=== PATIENT | female | born 1995 | race Caucasian/White ===

== ENCOUNTER 2019-03-16 22:48 | Emergency (ER) | payer OTHER ==
[2019-03-16 23:23] VITALS: PULSE 96; O2SAT 99
--- NOTE | 2019-03-17 00:20 | ERPHSYRPT ---
- History of Present Illness Time Seen by Provider: 03/17/19 00:05 Source: patient Patient Subjective Stated Complaint: "pt c/o lt lower flank pain, which is shooting down her left leg" Triage Nursing Assessment: lungs clear, heart tones reg, pt is has active bs x4 quad, FHT at 150 . Pt c/o lt lower flank pain radiating down left leg. Rates pain 9 on 0-10 scale. Pt is limping when walking due to pain. Physician History: Patient is a at 34 weeks who states she has had low back pain with radiation down her posterior left leg for the past two days. She has job duties that worsens her back pain. Patient denies any vaginal bleeding, leakage of fluids, headache, abdominal pain, abdominal cramping, vomiting, diarrhea and she feels baby moving well. Timing/Duration: yesterday Method of Injury: other (repetitive activity at work, no specific injury or mechanism) Quality: radiating, aching Back Pain Location: lumbar spine, paraspinous muscles Back Pain Radiation: lower legs (left side only) Severity of Pain-Current: severe Modifying Factors: Improves With: rest. Worsens With: movement Associated Symptoms: No fever, No chills, No sweating, No urinary incontinence, No loss of bowel control, No constipation, No nausea, No vomiting, No problems urinating, No light-headedness, No dizziness, No numbness in legs/feet, No weakness, No sensory/motor loss, No tingling in legs/feet, No lower back pain, No muscle spasms Previous symptoms: no prior history, no recent treatment Allergies/Adverse Reactions: ondansetron [From Zofran] Adverse Reaction (Intermediate, Verified 03/16/19 23: 34) Vomiting oats Adverse Reaction (Mild, Verified 03/16/19 23:34) Diarrhea Home Medications: Cephalexin [Keflex] 500 mg PO DAILY 03/16/19 [History] Docusate Sodium 100 mg PO BID 03/16/19 [History] Ferrous Sulfate [Iron] 325 mg PO BID 03/16/19 [History] Melatonin 5 mg PO HS 03/16/19 [History] Omeprazole 40 mg PO BID 03/16/19 [History] Vits W-Ca,Fe,FA(<1Mg) [] 1 tab PO DAILY 03/16/19 [History] Hx Tetanus, Diphtheria Vaccination/Date Given: Yes Hx Influenza Vaccination/Date Given: No Hx Pneumococcal Vaccination/Date Given: No Immunizations Up to Date: Yes - Review of Systems Constitutional: No Fever, No Chills Eyes: No Eye Pain, No Vision Changes Ears, Nose, & Throat: No Ear Discharge, No Nose Pain, No Nose Discharge, No Epistaxis Respiratory: No Cough, No Dyspnea Cardiac: No Chest Pain, No Edema, No Syncope Abdominal/Gastrointestinal: No Abdominal Pain, No Nausea, No Vomiting, No Diarrhea, No Hematemesis, No Hematochezia, No Melena Genitourinary Symptoms: No Dysuria, No Hematuria, No Flank Pain, No Vaginal Bleeding, No Vaginal Discharge, No Vaginal Itching Musculoskeletal: Back Pain, No Neck Pain Skin: No Rash Neurological: No Dizziness, No Focal Weakness, No Sensory Changes Psychological: No Anxiety, No Emotional Lability Endocrine: No Polyuria, No Excessive Sweating Hematologic/Lymphatic: No Easy Bleeding, No Easy Bruising All Other Systems: Reviewed and Negative - Past Medical History Pertinent Past Medical History: Yes Neurological History: Migraines ENT History: No Pertinent History Cardiac History: No Pertinent History Respiratory History: No Pertinent History Endocrine Medical History: No Pertinent History Musculoskeletal History: No Pertinent History GI Medical History: GERD History: Other Psycho-Social History: No Pertinent History Female Reproductive Disorders: No Pertinent History Other Medical History: UTI, brown recluse spider bite - Past Surgical History Past Surgical History: Yes Neuro Surgical History: No Pertinent History Cardiac: No Pertinent History Respiratory: No Pertinent History Gastrointestinal: No Pertinent History Genitourinary: No Pertinent History Musculoskeletal: No Pertinent History Female Surgical History: No Pertinent History Other Surgical History: brown recluse spider bite - Social History Smoking Status: Current every day smoker How long have you smoked: 4 yrs Exposure to second hand smoke: Yes Drug Use: none Patient Lives Alone: No - Female History Hx Now: Yes - Nursing Vital Signs Nursing Vital Signs: Initial Vital Signs Temperature 98.4 F 03/16/19 23:21 Pulse Rate 96 H 03/16/19 23:21 Respiratory Rate 17 03/16/19 23:21 Blood Pressure 143/93 03/16/19 23:21 O2 Sat by Pulse Oximetry 99 03/16/19 23:21 Pain Scale Pain Intensity 0 - Physical Exam General Appearance: no apparent distress, alert Eye Exam: PERRL/EOMI, eyes nml inspection Ears, Nose, Throat Exam: pharynx normal Neck Exam: normal inspection, non-tender, supple, full range of motion, No meningismus, No midline tenderness Respiratory Exam: normal breath sounds, lungs clear, No respiratory distress Cardiovascular Exam: regular rate/rhythm, normal heart sounds, normal peripheral pulses Gastrointestinal Exam: soft, other (gravid abdomen consistent with dates), No tenderness, No mass Back Exam: normal inspection, normal range of motion, No CVA tenderness, No vertebral tenderness, No rash, No muscle spasm Extremity Exam: normal inspection, normal range of motion, pelvis stable, No calf tenderness, No stephan's sign, No pedal edema, No swelling Peripheral Pulses: dorsalis-pedis (R): 2+, dorsalis-pedis (L): 2+ Neurologic Exam: alert, oriented x 3, cooperative, tip stretcher II-XII nml as tested, normal mood/affect, nml station & gait, sensation nml, No motor deficits Skin Exam: normal color, warm, dry, No rash SpO2 Interpretation: normal SpO2: 99 O2 Delivery: Room Air Ordered Tests: Active Orders 24 hr Category Date Time Status UA W/RFX UR CULTURE Stat Lab 03/17/19 00:40 Completed Medication Summary Discontinued Medications Generic Name Dose Route Start Last Admin Trade Name Jeffrey PRN Reason Stop Dose Admin Acetaminophen 1,000 mg 03/17/19 00:48 03/17/19 00:58 Tylenol Extra Strength 500 Mg PO 03/17/19 00:49 1,000 mg STAT STA Administration Acetaminophen Confirm 03/17/19 00:57 Tylenol Extra Strength 500 Mg Administered 03/17/19 00:58 Dose 1,000 mg .ROUTE .Tabblo-MED ONE Lab/Rad Data: Laboratory Results 03/17/19 Range/Units 00:40 Urine Color YELLOW (YELLOW) Urine Appearance SLIGHTLY CLOUDY (CLEAR) Urine pH 6.0 (5-6) Ur Specific [place] 1.015 (1.005-1.025) Urine Protein NEGATIVE (Negative) Urine Ketones NEGATIVE (NEGATIVE) Urine Blood NEGATIVE (0-5) Aman/ul Urine Nitrite NEGATIVE (NEGATIVE) Urine Bilirubin NEGATIVE (NEGATIVE) Urine Urobilinogen NEGATIVE (0-1) mg/dL Ur Leukocyte Esterase LARGE (NEGATIVE) Urine WBC (Auto) 3-5 (0-5) /HPF Urine RBC (Auto) 3-5 (0-2) /HPF U Epithel Cells (Auto) RARE (FEW) /HPF Urine Bacteria (Auto) RARE (NEGATIVE) /HPF Amorphous Crystals FEW (NEGATIVE) /HPF Urine Mucus (Auto) SLIGHT (NEGATIVE) /HPF Urine Culture Reflexed NO (NO) Urine Glucose NEGATIVE (NEGATIVE) mg/dL - Progress Progress: unchanged Progress Note: 03/17/19 00:[address] Mcmullen, QA REVIEWER about patient's presentation. Dr Mcmullen states patient can take Tylenol for pain and does not need any further evaluation in labor and delivery for her . Heart Tones werer 150 per nurses notes. Discussed with Dr.: Other (Dr Mcmullen, QA REVIEWER) Will see patient in: office Counseled pt/family regarding: lab results, diagnosis, need for follow-up - Departure Departure Disposition: Home Clinical Impression: Acute low back pain with left-sided sciatica Qualifiers: Back pain laterality: left Qualified Code(s): M54.42 - Lumbago with sciatica, left side Condition: Good Critical Care Time: No Referrals: DOCTOR,NO FAMILY [Primary Care Provider] - FAHEEM ANDREW MD [COURTESY STAFF] - 03/17/19 Instructions: Low Back Pain (DC), Sciatica (DC), Flank Pain Additional Instructions: Take Tylenol for pain control. See Dr Andrew in the morning of 03/17/2019. Return if any worse pain, new fever, new urinary symptoms, new weakness or any other concerning signs of symptoms not present at today's Emergency department visit for immediate evaluation in the emergency department. Forms: Work/School Release Form
[2019-03-17 00:34] VITALS: BP 115/68
[2019-03-17] MEDS ORDERED: TYLENOL EXTRA STRENGTH 500 MG PO STA (00:48)
[2019-03-17] MEDS ORDERED: TYLENOL EXTRA STRENGTH 500 MG ONE (00:57)
[2019-03-17 01:19] LABS: Amourphous Crystal FEW /HPF (NEGATIVE); Appearance SLIGHTLY CLOUDY (CLEAR); Bacteria RARE /HPF (NEGATIVE); Bilirubin NEGATIVE (NEGATIVE); Blood NEGATIVE Ery/ul (0-5); Epithelial Cells RARE /HPF (FEW); Glucose NEGATIVE (NEGATIVE); Ketones NEGATIVE (NEGATIVE); Leukocyte Esterase LARGE (NEGATIVE); Mucus SLIGHT /HPF (NEGATIVE); Nitrite NEGATIVE (NEGATIVE); Protein,Urine Dip NEGATIVE (Negative); Specific Gravity 1.015 (1.005-1.025); Urobilinogen NEGATIVE mg/dL (0-1)
== END 2019-03-17 01:18 | disposition home or self-care (01) ==
LOC: ED 22:48
DX: Z77.098 Contact with and (suspected) exposure to other hazardous, chiefly nonmedicinal, chemicals (principal); I10 Essential (primary) hypertension; Z79.899 Other long term (current) drug therapy; E03.9 Hypothyroidism, unspecified; G62.9 Polyneuropathy, unspecified
CPT/HCPCS: 81001; 99283; A9270-GY

== ENCOUNTER 2024-02-05 09:46 | Emergency (ER) | payer BC, OTHER ==
[2024-02-05 10:19] VITALS: TEMP 98.1
[2024-02-05] MEDS ORDERED: TORAdol 30 mg Injection ONE (10:35)
[2024-02-05] MEDS ORDERED: Sodium Chloride 0.9% 1000 ML 1,000 ML ONE (10:35)
[2024-02-05 10:37] LABS: Absolute Neutrophil Ct (ANC) 9.55 x10^3/uL (1.56-6.13); BASOPHIL % 0.2 % (0.1-1.2); Basophil (Absolute #) 0.03 x10^3/uL (0.01-0.08); Eosinophil % 2.6 % (0.7-5.8); Eosinophil (Absolute #) 0.35 x10^3/uL (0.04-0.36); Hematocrit 39.1 % (34.1-44.9); Hemoglobin 13.1 g/dL (11.2-15.7); IMMATURE GRAN # 0.13 x10^3u/L (0.001-0.031); Lymphocyte (Absolute #) 2.52 x10^3/uL (1.18-3.74); Mean Cell Volume 87.3 fL (79.4-94.8); Mean Corpuscular Hemoglobin 29.2 pg (25.6-32.2); Mean Corpuscular Hgb Concent. 33.5 g/dL (32.2-35.5); Mean Platelet Volume 9.4 fL (9.4-12.3); Monocytes % 5.3 % (4.7-12.5); Neutrophil % 71.9 % (34.0-71.1); Platelet Count 323 x10^3/uL (182-369); Red Blood Count 4.48 x10^6/uL (3.93-5.22); Red Cell Distribution Width 12.4 % (11.7-14.4); White Blood Count 13.3 x10^3/uL (3.98-10.04)
[2024-02-05] MEDS: Sodium Chloride 0.9% 1000 ML 1,000 ML IV SCH (10:43)
[2024-02-05 10:45] LABS: HCG URINE TEST NEGATIVE (NEGATIVE)
[2024-02-05] MEDS: TORAdol 30 mg Injection IV ONE (10:46)
[2024-02-05 10:52] LABS: ALBUMIN 4.2 g/dL (3.5-5.0); ANION GAP 13.5 MEQ/L (5-15); BILIRUBIN,TOTAL 0.3 mg/dL (0.2-1.3); Calcium 9.3 mg/dL (8.4-10.2); Creatinine 1 0.69 mg/dL (0.52-1.04); EST GLOMERULAR FILTRATION RATE 121.9 ML/MIN; Potassium 4.3 mmol/L (3.5-5.1); Total Protein 7.4 g/dL (6.3-8.2)
[2024-02-05 11:00] LABS: Appearance Cloudy (Clear); Bacteria Few /HPF (None Seen); Bilirubin Negative (Negative); Blood Small (Negative); Epithelial Cells Moderate /HPF (None Seen); Glucose, Urine Negative (Negative); Hyaline Casts NONE SEEN /LPF (0-2); Ketones Negative (Negative); Leukocyte Esterase Negative (Negative); Nitrite Negative (Negative); Ph 5.5 (4.6-8.0); Protein,Urine Dip Trace (Negative); Specific Gravity >=1.030 (1.005-1.030); Urobilinogen 0.2 mg/dL (0.2)
[2024-02-05 11:01] LABS: ADD URINE CULTURE? YES (NO)
[2024-02-05 11:16] VITALS: O2SAT 98
--- NOTE | 2024-02-05 11:56 | XRAY ---
Indication: Pain. Leukocytosis. Multiple contiguous axial images obtained through the abdomen and pelvis without contrast. Comparison: None Lung bases clear. Heart not enlarged. Noncontrasted stomach and bowel loops appear nonobstructed. Right ovary demonstrates 2.8 x 2.4 x 3.0 cm mass demonstrating soft tissue, fat, and calcifications favoring ovarian teratoma. 3.9 cm left ovary cyst. Tiny pelvic free fluid. Gallbladder demonstrates multiple tiny cholesterol stones. No free air. Remaining liver, pancreas, spleen, adrenal glands, kidneys, ureters, bladder, uterus, and aorta are unremarkable for noncontrast exam. Osseous structures intact with incidental bilateral L5 spondylolysis without listhesis. No ventral or inguinal hernias. Impression: 1. Right ovarian teratoma as detailed. 3.9 cm left ovary cyst with tiny free fluid. 2. Incidental tiny cholesterol gallstones and L5 spondylolysis without listhesis. 3. Remaining CT abdomen/pelvis without contrast exam is negative.
--- NOTE | 2024-02-05 13:09 | ERPHSYRPT ---
- History of Present Illness Time Seen by Provider: 02/05/24 10:20 Historian: patient Exam Limitations: no limitations Patient Subjective Stated Complaint: C/O abdominal pain with N/V. Indicates pain is to right lower abdomen at this time but started in mid upper abdomen upon waking up this am. Denies diarrhea or constipation. Triage Nursing Assessment: Patient ambulated back to ER without difficulties. She is alert and oriented. NO SOB. No cough. No active vomiting. Urine specimen obtained. PRESTON WNL. Pale. Physician History: 28-year-old female presents emergency department for evaluation of lower abdominal pain more to the right of midline than the left. Pain started today pain described as an ache that is localized. Pain is mild to moderate in intensity. No specific worsening or improving factors. Patient denies a history of the same. No associated trauma. No fever. Patient states she vomited once. Patient otherwise feels well. She voices no other complaints or concerns at this time. Portions of this note were created with voice recognition technology. There may be grammatical, spelling, punctuation or sound alike errors Timing/Duration: yesterday Activities at Onset: none Quality: aching Pain Radiation: other (Lower abdomen) Severity of Pain-Max: mild Severity of Pain-Current: moderate Modifying Factors: Improves With: nothing Associated Symptoms: denies symptoms, vomiting Previous symptoms: no prior history Allergies/Adverse Reactions: ondansetron [From Zofran] Adverse Reaction (Intermediate, Verified 02/05/24 10:05) Vomiting oats Adverse Reaction (Mild, Verified 02/05/24 10:05) Diarrhea Home Medications: Multivitamin 1 tab PO DAILY 02/05/24 [History] Norgestimate-Ethinyl Estradiol [Sprintec 28 Day Tablet] 1 tab PO DAILY 02/05/24 [History] Hx Tetanus, Diphtheria Vaccination/Date Given: Yes Hx Influenza Vaccination/Date Given: Yes Hx Pneumococcal Vaccination/Date Given: No Immunizations Up to Date: Yes Travel Risk - International Travel Have you traveled outside of the country in past 3 weeks: No - Emerging Infectious Disease Are you exhibiting symptoms associated with any current EIDs: Yes Symptoms: Abdominal Pain, Vomitting - Review of Systems Constitutional: No Symptoms, No Fever, No Chills Eyes: No Symptoms Ears, Nose, & Throat: No Symptoms Respiratory: No Symptoms, No Cough, No Dyspnea Cardiac: No Symptoms, No Chest Pain, No Edema, No Syncope Abdominal/Gastrointestinal: No Symptoms, No Abdominal Pain, No Nausea, No Vomiting, No Diarrhea Genitourinary Symptoms: No Symptoms, No Dysuria Musculoskeletal: No Symptoms, No Back Pain, No Neck Pain Skin: No Symptoms, No Rash Neurological: No Symptoms, No Dizziness, No Focal Weakness, No Sensory Changes Psychological: No Symptoms Endocrine: No Symptoms Hematologic/Lymphatic: No Symptoms Immunological/Allergic: No Symptoms All Other Systems: Reviewed and Negative - Past Medical History Pertinent Past Medical History: Yes Neurological History: Migraines ENT History: No Pertinent History Cardiac History: No Pertinent History Respiratory History: No Pertinent History Endocrine Medical History: No Pertinent History Musculoskeletal History: No Pertinent History GI Medical History: GERD History: Other Psycho-Social History: No Pertinent History Female Reproductive Disorders: No Pertinent History Other Medical History: UTI, brown recluse spider bite - Past Surgical History Past Surgical History: Yes Neuro Surgical History: No Pertinent History Cardiac: No Pertinent History Respiratory: No Pertinent History Gastrointestinal: No Pertinent History Genitourinary: No Pertinent History Musculoskeletal: No Pertinent History Female Surgical History: No Pertinent History Other Surgical History: brown recluse spider bite - Female History Hx Last Menstrual Period: last month Hx Now: No - Social History Smoking Status: Current every day smoker How long have you smoked: 9 years Exposure to second hand smoke: Yes Drug Use: none Patient Lives Alone: No - Social Determinants of Health Will the patient participate in the screening: Yes Do you worry about a steady place to live?: No Do you have any problems with any of the following?: No known problems In the past 12 months,have you had to go without utilities?: No Transportation Issues: No Has anyone in your support network made you feel unsafe?: No Have you or anyone in your house had to go without enough: No - Nursing Vital Signs Nursing Vital Signs: Initial Vital Signs Pulse Rate 87 02/05/24 10:04 Respiratory Rate 21 02/05/24 10:04 Blood Pressure 112/78 02/05/24 10:04 O2 Sat by Pulse Oximetry 100 02/05/24 10:04 Pain Scale Pain Intensity 0 - Physical Exam General Appearance: no apparent distress, alert Eye Exam: PERRL/EOMI, eyes nml inspection Ears, Nose, Throat Exam: normal ENT inspection, pharynx normal, moist mucous membranes Neck Exam: normal inspection, non-tender, supple, full range of motion Respiratory Exam: normal breath sounds, lungs clear, airway intact, No respiratory distress Cardiovascular Exam: regular rate/rhythm, normal heart sounds, normal peripheral pulses Gastrointestinal/Abdomen Exam: soft, tenderness (Mild lower abdominal tenderness no CVA tenderness no epigastric pain or tenderness), No mass Back Exam: normal inspection, normal range of motion, No CVA tenderness, No vertebral tenderness Extremity Exam: normal inspection, normal range of motion, pelvis stable Neurologic Exam: alert, oriented x 3, cooperative, normal mood/affect, nml cerebellar function, sensation nml, No motor deficits Skin Exam: normal color, warm, dry Lymphatic Exam: No adenopathy SpO2 Interpretation: normal SpO2: 98 O2 Delivery: Room Air - Course Nursing assessment & vital signs reviewed: Yes - CT Exams Abdomen/Pelvis CT Interpretation: Tele-radiologist Report (CT abdomen pelvis reveals a right ovarian mass measuring 2.8 x 2.4 x 3 cm with fat and calcification likely a teratoma. There is a 3.9 cm left ovarian cyst.) Ordered Tests: Active Orders 24 hr Category Date Time Status IV Insertion STAT Care 02/05/24 10:15 Active ABDOMEN AND PELVIS W/0 CONTRAS [CT] Stat Exams 02/05/24 10:16 Completed CBC W DIFF Stat Lab 02/05/24 10:37 Completed CMP Stat Lab 02/05/24 10:37 Completed CULTURE,URINE Stat Lab 02/05/24 10:16 Received HCG QUALITATIVE, URINE Stat Lab 02/05/24 10:39 Completed TROPONIN Q4H Lab 02/05/24 10:37 Completed TROPONIN Q4H Lab 02/05/24 14:30 Ordered TROPONIN Q4H Lab 02/05/24 18:30 Ordered UA W/RFX UR CULTURE Stat Lab 02/05/24 10:16 Completed Medication Summary Generic Name Dose Route Start Last Admin Trade Name Freq PRN Reason Stop Dose Admin Sodium Chloride 1,000 mls @ 100 mls/hr 02/05/24 10:15 02/05/24 10:43 Sodium Chloride 0.9% 1000 Ml IV 03/06/24 10:14 100 mls/hr .Q10H ROSEMARIE Administration Discontinued Medications Generic Name Dose Route Start Last Admin Trade Name Freq PRN Reason Stop Dose Admin Ketorolac Tromethamine 30 mg 02/05/24 10:15 02/05/24 10:46 Ketorolac Tromethamine 30 Mg/Ml Inj IV 02/05/24 10:16 30 mg STAT ONE Administration Ketorolac Tromethamine Confirm 02/05/24 10:35 Ketorolac Tromethamine 30 Mg/Ml Inj Administered 02/05/24 10:36 Dose 30 mg .ROUTE .STK-MED ONE Lab/Rad Data: Laboratory Result Diagrams 02/05/24 10:37 02/05/24 10:37 Laboratory Results 02/05/24 02/05/24 02/05/24 Range/Units 10:39 10:37 10:37 WBC (3.98-10.04) x10^3/uL RBC (3.93-5.22) x10^6/uL Hgb (11.2-15.7) g/dL Hct (34.1-44.9) % MCV (79.4-94.8) fL MCH (25.6-32.2) pg MCHC (32.2-35.5) g/dL RDW (11.7-14.4) % Plt Count (182-369) x10^3/uL MPV (9.4-12.3) fL Gran % (34.0-71.1) % Immature Gran % (Auto) (0.001-0.429) % Nucleat RBC Rel Count (0.00-0.2) % Eos # (Auto) (0.04-0.36) x10^3/uL Immature Gran # (Auto) (0.001-0.031) x10^3u/L Absolute Lymphs (auto) (1.18-3.74) x10^3/uL Absolute Monos (auto) (0.24-0.86) x10^3/uL Absolute Nucleated RBC (0.00-0.012) x10^3u/L Lymphocytes % (19.3-51.7) % Monocytes % (4.7-12.5) % Eosinophils % (0.7-5.8) % Basophils % (0.1-1.2) % Absolute Granulocytes (1.56-6.13) x10^3/uL Basophils # (0.01-0.08) x10^3/uL Sodium 138 (135-145) mmol/L Potassium 4.3 (3.5-5.1) mmol/L Chloride 104 (98-107) mmol/L Carbon Dioxide 25 (22-30) mmol/L Anion Gap 13.5 (5-15) MEQ/L BUN 12 (7-17) mg/dL Creatinine 0.69 (0.52-1.04) mg/dL Estimated GFR 121.9 ML/MIN Glucose 106 (74-106) mg/dL Calcium 9.3 (8.4-10.2) mg/dL Total Bilirubin 0.30 (0.2-1.3) mg/dL AST 29 (14-36) U/L ALT 38 H (0-35) U/L Alkaline Phosphatase 67 (38-126) U/L Troponin I < 0.012 (0.000-0.033) ng/mL Serum Total Protein 7.4 (6.3-8.2) g/dL Albumin 4.2 (3.5-5.0) g/dL Urine Color (Yellow) Urine Appearance (Clear) Urine pH (4.6-8.0) Ur Specific [place] (1.005-1.030) Urine Protein (Negative) Urine Glucose (UA) (Negative) mg/dL Urine Ketones (Negative) Urine Blood (Negative) Urine Nitrite (Negative) Urine Bilirubin (Negative) Urine Urobilinogen (0.2) mg/dL Ur Leukocyte Esterase (Negative) U Hyaline Cast (Auto) (0-2) /LPF Urine Microscopic RBC (0-5) /HPF Urine Microscopic WBC (0-5) /HPF Ur Epithelial Cells (None Seen) /HPF Urine Bacteria (None Seen) /HPF Urine Culture Reflexed (NO) Urine HCG, Qual NEGATIVE (NEGATIVE) 02/05/24 02/05/24 Range/Units 10:37 10:16 WBC 13.3 H (3.98-10.04) x10^3/uL RBC 4.48 (3.93-5.22) x10^6/uL Hgb 13.1 (11.2-15.7) g/dL Hct 39.1 (34.1-44.9) % MCV 87.3 (79.4-94.8) fL MCH 29.2 (25.6-32.2) pg MCHC 33.5 (32.2-35.5) g/dL RDW 12.4 (11.7-14.4) % Plt Count 323 (182-369) x10^3/uL MPV 9.4 (9.4-12.3) fL Gran % 71.9 H (34.0-71.1) % Immature Gran % (Auto) 1.0 H (0.001-0.429) % Nucleat RBC Rel Count 0.0 (0.00-0.2) % Eos # (Auto) 0.35 (0.04-0.36) x10^3/uL Immature Gran # (Auto) 0.13 H (0.001-0.031) x10^3u/L Absolute Lymphs (auto) 2.52 (1.18-3.74) x10^3/uL Absolute Monos (auto) 0.70 (0.24-0.86) x10^3/uL Absolute Nucleated RBC 0.00 (0.00-0.012) x10^3u/L Lymphocytes % 19.0 L (19.3-51.7) % Monocytes % 5.3 (4.7-12.5) % Eosinophils % 2.6 (0.7-5.8) % Basophils % 0.2 (0.1-1.2) % Absolute Granulocytes 9.55 H (1.56-6.13) x10^3/uL Basophils # 0.03 (0.01-0.08) x10^3/uL Sodium (135-145) mmol/L Potassium (3.5-5.1) mmol/L Chloride (98-107) mmol/L Carbon Dioxide (22-30) mmol/L Anion Gap (5-15) MEQ/L BUN (7-17) mg/dL Creatinine (0.52-1.04) mg/dL Estimated GFR ML/MIN Glucose (74-106) mg/dL Calcium (8.4-10.2) mg/dL Total Bilirubin (0.2-1.3) mg/dL AST (14-36) U/L ALT (0-35) U/L Alkaline Phosphatase (38-126) U/L Troponin I (0.000-0.033) ng/mL Serum Total Protein (6.3-8.2) g/dL Albumin (3.5-5.0) g/dL Urine Color Yellow (Yellow) Urine Appearance Cloudy A (Clear) Urine pH 5.5 (4.6-8.0) Ur Specific [place] >=1.030 A (1.005-1.030) Urine Protein Trace A (Negative) Urine Glucose (UA) Negative (Negative) mg/dL Urine Ketones Negative (Negative) Urine Blood Small A (Negative) Urine Nitrite Negative (Negative) Urine Bilirubin Negative (Negative) Urine Urobilinogen 0.2 (0.2) mg/dL Ur Leukocyte Esterase Negative (Negative) U Hyaline Cast (Auto) NONE SEEN (0-2) /LPF Urine Microscopic RBC 3-5 (0-5) /HPF Urine Microscopic WBC 3-5 (0-5) /HPF Ur Epithelial Cells Moderate A (None Seen) /HPF Urine Bacteria Few A (None Seen) /HPF Urine Culture Reflexed YES (NO) Urine HCG, Qual (NEGATIVE) - Progress Progress: improved Progress Note: 28-year-old female presents to our ED for evaluation of lower abdominal pain and vomiting x 1 day. Physical exam shows some tenderness to the lower abdomen. CT abdomen/pelvis significant for a teratoma measuring approximately 3 cm. Patient also has a right ovarian cyst measuring approximately 4 cm. Urinalysis performed. Cultures pending. No obvious urinary tract infection observed at this time. Patient has a small cholesterol gallstones. And L5 spondylosis. Case discussed with Dr. Cole at 1 PM. He will see patient in the office. Patient advised of plan of care. Patient will call his office for a follow-up appointment. Patient reassessed. She is resting comfortably no active pain. Patient sleeping in the room. She voices no other complaints concerns at this time. Urine cultures pending. Portions of this note were created with voice recognition technology. There may be grammatical, spelling, punctuation or sound alike errors Complexity of problem addressed is moderate acute complicated. No critical care time. Compliance data reviewed and analyzed is extensive. Test ordered test reviewed results analyzed and correlated clinically with history and physical exam. Management discussed with CARTON MAKER physician. Risk of complication and a risk of morbidity/mentality patient management is low. Vital stable. Time spent to discharge patient approximately 15 to 20 minutes. Plan of care established through shared decision making. No social determinants of health present to impede follow-up. Portions of this note were created with voice recognition technology. There may be grammatical, spelling, punctuation or sound alike errors 02/05/24 13:09 02/05/24 13:13 Counseled pt/family regarding: lab results, diagnosis, need for follow-up, rad results - Departure Departure Disposition: Home Clinical Impression: Lower abdominal pain, Teratoma, Cholesterol gallstone, L5 spondylosis Condition: Stable Critical Care Time: No Referrals: DOCTOR,NO FAMILY [Primary Care Provider] - Follow up/PCP as directed LOR COLE DO [ACTIVE STAFF] - Follow up/PCP as directed CANELO THAPA DO [ACTIVE STAFF] - Follow up/PCP as directed Additional Instructions: Discharge/Care Plan ALFONSOGEE Milton was seen on 02/05/24 in the Emergency Room. The patient was counseled regarding Diagnosis,Lab results, Imaging studies, need for follow up and when to return to the Emergency Room. Prescriptions given: Discharge Note I have spoken with the patient and/or caregivers. I have explained the patient's condition, diagnosis and treatment plan based on the information available to me at this time. I have answered the patient's and/or caregiver's questions and addressed any concerns. The patient and/or caregivers have as good understanding of the patient's diagnosis, condition and treatment plan as can be expected at this point. The vital signs have been stable. The patient's condition is stable and appropriate for discharge from the emergency department. The patient will pursue further outpatient evaluation with the primary care physician or other designated or consulting physician as outlined in the d ischarge instructions. The patient and/or caregivers are agreeable to this plan of care and follow-up instructions have been explained in detail. The patient and/or caregivers have received these instruction. The patient/and or caregivers are aware that any significant change in condition or worsening of symptoms should prompt an immediate return to this or the closest emergency department or call 911.
[2024-02-05 13:24] VITALS: BP 110/63; PULSE 72; RESP 16
== END 2024-02-05 13:28 | disposition home or self-care (01) ==
LOC: ED 09:46
DX: D27.0 Benign neoplasm of right ovary (principal); K80.80 Other cholelithiasis without obstruction; M47.816 Spondylosis without myelopathy or radiculopathy, lumbar region; R10.31 Right lower quadrant pain; Z72.0 Tobacco use
CPT/HCPCS: 36000; 36415; 74176; 80053; 81001; 81025; 84484; 85025; 87086; 96374; 99284; J1885